=== PATIENT | female | born 1990 | race Caucasian/White ===

== ENCOUNTER 2018-10-23 17:41 | Emergency (ER) | payer MEDICAID ==
--- NOTE | 2018-10-23 17:47 | EDPHY ---
H & P Time Seen by Provider: 10/23/18 17:47 HPI/ROS: CHIEF COMPLAINT: Abdominal pain and vomiting HISTORY OF PRESENT ILLNESS: The patient presents the emergency department from the [facility] with abdominal pain and vomiting. The patient is visiting from out of town reportedly had quite a bit to drink last night which landed her in the [facility] for sobriety. She developed epigastric and right upper quadrant pain with vomiting today. The patient denies prior history of the symptoms. She denies prior history of abdominal surgery. She denies fever, cough or congestion. She denies any urinary complaints. The patient denies past history of gastroesophageal reflux disease. REVIEW OF SYSTEMS: A comprehensive 10 point review of systems is otherwise negative aside from elements mentioned in the history of present illness. Source: Patient Exam Limitations: No limitations - Medical/Surgical History PMH: Past medical history: Gastroesophageal reflux disease. - Social History Smoking Status: Never smoked Alcohol Use: Other - Physical Exam Exam: General Appearance: Alert, no distress Eyes: Pupils equal and round no pallor or injection ENT, Mouth: Mucous membranes moist Respiratory: There are no retractions, lungs are clear to auscultation Cardiovascular: Regular rate and rhythm Gastrointestinal: Right upper quadrant epigastric tenderness to palpation, mild right mid quadrant tenderness to palpation Neurological: 5/5 strength noted all 4 extremities Skin: Warm and dry, no rashes Musculoskeletal: Neck is supple nontender Extremities: symmetrical, full range of motion Psychiatric: Patient is oriented X 3, there is no agitation Constitutional: Initial Vital Signs Temperature (C) 36.8 C 10/23/18 17:54 Heart Rate 80 10/23/18 17:54 Respiratory Rate 16 10/23/18 17:54 Blood Pressure 104/72 10/23/18 17:54 O2 Sat (%) 97 10/23/18 17:54 O2 Delivery Mode Room Air Allergies/Adverse Reactions: diphenhydramine [From Benadryl] Allergy (Verified 10/23/18 17:53) Home Medications: Medication Instructions Recorded Lorazepam 10/23/18 Ondansetron Odt [Zofran Odt] 4 mg PO Q4PRN PRN #20 tab 10/23/18 Medical Decision Making ED Course/Re-evaluation: The patient had an IV established. She received 4 mg of IV Zofran and a L of normal saline. Screening laboratory studies demonstrate no evidence of critical anemia, pancreatitis or hepatitis. She has no evidence of a metabolic derangement. The patient still has a blood alcohol level 0.126. Patient continued to complain of some dyspepsia in the emergency department. She was given a GI cocktail at 6:45 p.m.. I re-evaluated the patient at 7:30 p.m.. She is now feeling better after the GI cocktail and is attempting a p.o. challenge. 8:00 p.m.: The patient is feeling better now vomiting or pain. She will be discharged home with a sober friend. She is given a prescription for Zofran to go home with. She is given customary aftercare instructions and return precautions. Differential Diagnosis: Differential diagnosis considered includes alcoholic gastritis, pancreatitis, hepatitis, cholecystitis, appendicitis, gastroenteritis - Data Points Laboratory Results: Laboratory Results 10/23/18 17:45 10/23/18 17:45 10/23/18 10/23/18 10/23/18 17:45 17:45 17:45 WBC RBC Hgb Hct MCV MCH MCHC RDW Plt Count MPV Neut % (Auto) Lymph % (Auto) [place] % (Auto) Eos % (Auto) Baso % (Auto) Nucleat RBC Rel Count Absolute Neuts (auto) Absolute Lymphs (auto) Absolute Monos (auto) Absolute Eos (auto) Absolute Basos (auto) Absolute Nucleated RBC Immature Gran % Immature Gran # Sodium 140 mEq/L mEq/L (135-145) Potassium 4.2 mEq/L mEq/L (3.5-5.2) Chloride 100 mEq/L mEq/L (97-110) Carbon Dioxide 25 mEq/l mEq/l (22-31) Anion Gap 15 mEq/L H mEq/L (6-14) BUN 11 mg/dL mg/dL (7-23) Creatinine 0.6 mg/dL mg/dL (0.6-1.0) Estimated GFR > 60 Glucose 84 mg/dL mg/dL (70-100) Calcium 11.0 mg/dL H mg/dL (8.5-10.4) Phosphorus 5.3 mg/dL H mg/dL (2.5-4.5) Total Bilirubin 0.3 mg/dL mg/dL (0.1-1.4) Conjugated Bilirubin 0.1 mg/dL mg/dL (0.0-0.5) Unconjugated Bilirubin 0.2 mg/dL mg/dL (0.0-1.1) AST 22 IU/L IU/L (14-46) ALT 28 IU/L IU/L (9-52) Alkaline Phosphatase 62 IU/L IU/L (38-126) Total Protein 8.0 g/dL g/dL (6.3-8.2) Albumin 5.0 g/dL g/dL (3.5-5.0) Lipase 41 IU/L IU/L (23-300) Beta HCG, Qual NEGATIVE Ethyl Alcohol 129 mg/dL H mg/dL (0-10) 10/23/18 17:45 WBC 6.33 10^3/uL 10^3/uL (3.80-9.50) RBC 4.89 10^6/uL 10^6/uL (4.18-5.33) Hgb 15.5 g/dL g/dL (12.6-16.3) Hct 44.0 % % (38.0-47.0) MCV 90.0 fL fL (81.5-99.8) MCH 31.7 pg pg (27.9-34.1) MCHC 35.2 g/dL g/dL (32.4-36.7) RDW 12.0 % % (11.5-15.2) Plt Count 405 10^3/uL H 10^3/uL (150-400) MPV 7.9 fL L fL (8.7-11.7) Neut % (Auto) 50.5 % % (39.3-74.2) Lymph % (Auto) 38.4 % % (15.0-45.0) [place] % (Auto) 9.8 % % (4.5-13.0) Eos % (Auto) 0.6 % % (0.6-7.6) Baso % (Auto) 0.5 % % (0.3-1.7) Nucleat RBC Rel Count 0.0 % % (0.0-0.2) Absolute Neuts (auto) 3.20 10^3/uL 10^3/uL (1.70-6.50) Absolute Lymphs (auto) 2.43 10^3/uL 10^3/uL (1.00-3.00) Absolute Monos (auto) 0.62 10^3/uL 10^3/uL (0.30-0.80) Absolute Eos (auto) 0.04 10^3/uL 10^3/uL (0.03-0.40) Absolute Basos (auto) 0.03 10^3/uL 10^3/uL (0.02-0.10) Absolute Nucleated RBC 0.00 10^3/uL 10^3/uL (0-0.01) Immature Gran % 0.2 % % (0.0-1.1) Immature Gran # 0.01 10^3/uL 10^3/uL (0.00-0.10) Sodium Potassium Chloride Carbon Dioxide Anion Gap BUN Creatinine Estimated GFR Glucose Calcium Phosphorus Total Bilirubin Conjugated Bilirubin Unconjugated Bilirubin AST ALT Alkaline Phosphatase Total Protein Albumin Lipase Beta HCG, Qual Ethyl Alcohol Medications Given: Discontinued Medications Acetaminophen (Tylenol) 1,000 mg PO EDNOW ONE Stop: 10/23/18 18:05 Last Admin: 10/23/18 18:06 Dose: 1,000 mg Al Hydroxide/Mg Hydroxide (Maalox Susp) 30 ml PO EDNOW ONE Stop: 10/23/18 18:58 Last Admin: 10/23/18 19:00 Dose: 30 ml Hyoscyamine Sulfate (Levsin, Hyomax-Sl) 0.25 mg PO EDNOW ONE Stop: 10/23/18 18:58 Last Admin: 10/23/18 18:59 Dose: 0.25 mg Sodium Chloride (Ns) 1,000 mls @ 0 mls/hr IV EDNOW ONE; Wide Open PRN Reason: Protocol Stop: 10/23/18 17:53 Last Admin: 10/23/18 18:01 Dose: 1,000 mls Lidocaine (Lidocaine 2% Viscous) 5 ml PO EDNOW ONE Stop: 10/23/18 18:58 Last Admin: 10/23/18 18:59 Dose: 5 ml Ondansetron HCl (Zofran) 4 mg IVP EDNOW ONE Stop: 10/23/18 17:53 Last Admin: 10/23/18 18:01 Dose: 4 mg Departure - Departure Disposition: Home, Routine, Self-Care Clinical Impression: Alcohol intoxication, Alcoholic gastritis Condition: Good Instructions: Gastritis (ED) Additional Instructions: 1. I recommend Maalox and Zantac for your stomach discomfort. 2. Please return to the ED for markedly worsening symptoms or other concerns. 3. Please schedule a follow-up appointment with your primary care provider to be seen as needed. Prescriptions: Ondansetron Odt [Zofran Odt] 4 mg PO Q4PRN PRN #20 tab PRN Reason: For Nausea
[2018-10-23] MEDS ORDERED: ONDANSETRON 4 MG/2 ML VIAL IVP ONE (17:52)
[2018-10-23] MEDS ORDERED: NS 1,000 ML IV ONE (17:52)
[2018-10-23] MEDS ORDERED: ACETAMINOPHEN 500 MG TAB PO ONE (18:04)
[2018-10-23 18:17] LABS: PLATELET COUNT 405 10^3/uL (150-400)
[2018-10-23] MEDS ORDERED: MAG HYDROX/AL HYDROX/SIMETH 30 ML UDCUP ONE (18:55)
[2018-10-23] MEDS ORDERED: LIDOCAINE 2% VISCOUS 15 ML UDCUP ONE (18:55)
[2018-10-23] MEDS ORDERED: HYOSCYAMINE SULFATE 0.125 MG TAB ONE (18:55)
[2018-10-23] MEDS ORDERED: MAG HYDROX/AL HYDROX/SIMETH 30 ML UDCUP PO ONE (18:57)
[2018-10-23] MEDS ORDERED: LIDOCAINE 2% VISCOUS 15 ML UDCUP PO ONE (18:57)
[2018-10-23] MEDS ORDERED: HYOSCYAMINE SULFATE 0.125 MG TAB PO ONE (18:57)
[2018-10-23] MEDS ORDERED: ONDANSETRON 4MG PREPACK#2 BTL TAKEHOME ONE (19:31)
[2018-10-23 19:51] VITALS: BP 120/64
== END 2018-10-23 19:51 | disposition home or self-care (01) ==
LOC: EDUNIT#
DX: F10.920 Alcohol use, unspecified with intoxication, uncomplicated (principal); K29.20 Alcoholic gastritis without bleeding; E86.9 Volume depletion, unspecified; Y90.6 Blood alcohol level of 120-199 mg/100 ml
CPT/HCPCS: 96374; G0480; J2405